=== PATIENT | female | born 2000 ===

== ENCOUNTER 2021-11-22 20:06 | Inpatient (IN) | payer OTHER ==
[2021-11-22] MEDS ORDERED: BUTORPHANOL 1 MG/ML INJ IV PRN (20:54)
[2021-11-22] MEDS ORDERED: METHYLERGONOVINE 0.2MG/ML AMP IM PRN (20:54)
[2021-11-22] MEDS ORDERED: PROMETHAZINE INJ 25 MG/ML AMP IV PRN (20:54)
[2021-11-22] MEDS ORDERED: Ringers Lactate 1,000 ML IV PRN (20:54)
[2021-11-22] MEDS ORDERED: Ringers Lactate 1,000 ML IV SCH (21:00)
[2021-11-22] MEDS ORDERED: PENICILLIN 5 MU in NA CHLORIDE 0.9% 100 ML IV ONE (21:00)
[2021-11-22] MEDS ORDERED: PENICILLIN G POT 5 MU/VIAL IV ONE (21:16)
[2021-11-22] MEDS ORDERED: NA CHLORIDE 0.9% 50 ML ONE (21:17)
--- OUTSIDE RECORDS SUMMARY | 2021-11-22 21:20 | XMS REPORT | Continuity of Care Document ---
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 [facility]it y of [facility] .5 mL 00:00:00 [facility] 6+ MO [facility] Influenza Virus 2020-09-02 Completed Universit y of [facility] .5 mL 00:00:00 [facility] 6[facility] MO [facility] Influenza Virus 2020-09-02 Completed [facility]it y of [facility] .5 mL 00:00:00 [facility] 6+ MO [facility] Influenza Virus 2020-09-02 Completed [facility]it y [facility] .5 mL 00:00:00 [facility] Influenza Virus 2020-09-02 Completed [facility]it y of [facility] .5 mL 00:00:00 [facility] 6[facility] Influenza Virus 2020-09-02 Completed [facility]it y of [facility] .5 mL 00:00:00 [facility] 6+ MO [facility] Influenza Virus 2020-09-02 Completed [facility]it y of [facility] .5 mL 00:00:00 [facility] 6+ MO [facility] Influenza Virus 2020-09-02 Completed Universit y of [facility] .5 mL 00:00:00 [facility] 6[facility] MO [facility] Influenza Virus 2020-09-02 Completed [facility]it y of [facility] .5 mL 00:00:00 [facility] 6[facility] MO [facility] Tdap 2019-09-10 Completed [facility] 00:00:00 [facility] Influenza Virus 2019-09-10 Completed [facility]it y of [facility] .5 mL 00:00:00 [facility] 6+ MO [facility] Tdap 2019-09-10 Completed [facility] 00:00:00 [facility] Influenza Virus 2019-09-10 Completed [facility]it y of [facility] .5 mL 00:00:00 [facility] 6+ MO [facility] Tdap 2019-09-10 Completed [facility] 00:00:00 [facility] Influenza Virus 2019-09-10 Completed Universit y of [facility] .5 mL 00:00:00 [facility] 6+ MO [facility] Tdap 2019-09-10 Completed [facility] 00:00:00 [facility] Influenza Virus 2019-09-10 Completed [facility]it y of [facility] .5 mL 00:00:00 [facility] 6[facility] MO [facility] TDAP 2019-09-10 Completed [facility] 00:00:00 [facility] Influenza Virus 2019-09-10 Completed [facility]it y of [facility] .5 mL 00:00:00 [facility] 6[facility] MO [facility] TDAP 2019-09-10 Completed [facility] 00:00:00 [facility] Influenza Virus 2019-09-10 Completed Universit y of [facility] .5 mL 00:00:00 [facility] 6[facility] MO [facility] TDAP 2019-09-10 Completed [facility] 00:00:00 [facility] Influenza Virus 2019-09-10 Completed Universit y of [facility] .5 mL 00:00:00 [facility] 6[facility] MO [facility] TDAP 2019-09-10 Completed [facility] 00:00:00 [facility] Influenza Virus 2019-09-10 Completed [facility]it y of [facility] .5 mL 00:00:00 [facility] 6+ MO [facility] TDAP 2019-09-10 Completed [facility] 00:00:00 [facility] Influenza Virus 2019-09-10 Completed [facility]it y of [facility] .5 mL 00:00:00 [facility] 6+ MO [facility] TDAP 2019-09-10 Completed [facility] 00:00:00 [facility] Influenza Virus 2019-09-10 Completed [facility]it y of [facility] .5 mL 00:00:00 [facility] 6+ MO [facility] TDAP 2019-09-10 Completed [facility] 00:00:00 [facility] Influenza Virus 2019-09-10 Completed Universit y of [facility] .5 mL 00:00:00 [facility] 6+ MO Branch TDAP 2019-09-10 Completed [facility] 00:00:00 [facility] Influenza Virus 2019-09-10 Completed Universit y of [facility] .5 mL 00:00:00 [facility] 6+ MO Branch TDAP 2019-09-10 Completed [facility] 00:00:00 [facility] Influenza Virus 2019-09-10 Completed Universit y of [facility] .5 mL 00:00:00 [facility] 6+ MO Branch TDAP 2019-09-10 Completed [facility] 00:00:00 [facility] Influenza Virus 2019-09-10 Completed Universit y of [facility] .5 mL 00:00:00 [facility] 6+ MO Branch TDAP 2019-09-10 Completed [facility] 00:00:00 [facility] Influenza Virus 2019-09-10 Completed [facility]it y of [facility] .5 mL 00:00:00 [facility] 6[facility] MO [facility] TDAP 2019-09-10 Completed [facility] 00:00:00 [facility] Influenza Virus 2019-09-10 Completed [facility]it y of [facility] .5 mL 00:00:00 [facility] 6[facility] MO [facility] TDAP 2019-09-10 Completed [facility] 00:00:00 [facility] Influenza Virus 2019-09-10 Completed [facility]it y of [facility] .5 mL 00:00:00 [facility] 6[facility] MO [facility] TDAP 2019-09-10 Completed [facility] 00:00:00 [facility] Influenza Virus 2019-09-10 Completed [facility]it y of [facility] .5 mL 00:00:00 [facility] 6[facility] MO [facility] TDAP 2019-09-10 Completed [facility] 00:00:00 [facility] Influenza Virus 2019-09-10 Completed Universit y of [facility] .5 mL 00:00:00 [facility] 6[facility] MO [facility] TDAP 2019-09-10 Completed [facility] 00:00:00 [facility] Influenza Virus 2019-09-10 Completed [facility]it y of [facility] .5 mL 00:00:00 [facility] 6[facility] MO [facility] TDAP 2019-09-10 Completed [facility] 00:00:00 [facility] Influenza Virus 2019-09-10 Completed [facility]it y of [facility] .5 mL 00:00:00 [facility] 6[facility] MO [facility] TDAP 2019-09-10 Completed [facility] 00:00:00 [facility] Influenza Virus 2019-09-10 Completed [facility]it y of [facility] .5 mL 00:00:00 [facility] 6[facility] MO [facility] TDAP 2019-09-10 Completed [facility] 00:00:00 [facility] Influenza Virus 2019-09-10 Completed [facility]it y of [facility] .5 mL 00:00:00 [facility] 6[facility] MO [facility] TDAP 2019-09-10 Completed [facility] 00:00:00 [facility] Influenza Virus 2019-09-10 Completed [facility]it y of [facility] .5 mL 00:00:00 [facility] 6[facility] MO [facility] TDAP 2019-09-10 Completed [facility] 00:00:00 [facility] Influenza Virus 2019-09-10 Completed [facility]it y of [facility] .5 mL 00:00:00 [facility] 6[facility] MO [facility] TDAP 2019-09-10 Completed [facility] 00:00:00 [facility] Influenza Virus 2019-09-10 Completed [facility]it y of [facility] .5 mL 00:00:00 [facility] 6[facility] MO [facility] TDAP 2019-09-10 Completed [facility] 00:00:00 [facility] Influenza Virus 2019-09-10 Completed [facility]it y of [facility] .5 mL 00:00:00 [facility] 6[facility] MO [facility] TDAP 2019-09-10 Completed [facility] 00:00:00 [facility] Influenza Virus 2019-09-10 Completed [facility]it y of [facility] .5 mL 00:00:00 [facility] 6[facility] MO [facility] TDAP 2019-09-10 Completed [facility] 00:00:00 [facility] Influenza Virus 2019-09-10 Completed [facility]it y of [facility] .5 mL 00:00:00 [facility] 6[facility] TDAP 2019-09-10 Completed [facility] 00:00:00 [facility] Influenza Virus 2019-09-10 Completed [facility]it y of [facility] .5 mL 00:00:00 [facility] 6[facility] Tdap 2019-09-10 Completed [facility] 00:00:00 [facility] Influenza Virus 2019-09-10 Completed Universit y of [facility] .5 mL 00:00:00 [facility] 6[facility] MO [facility] Tdap 2019-09-10 Completed [facility] 00:00:00 [facility] Influenza Virus 2019-09-10 Completed Universit y of [facility] .5 mL 00:00:00 [facility] IM 6+ MO Branch HPV 2015-09-19 Completed [facility] 00:00:00 [facility] HPV 2015-09-19 Completed [facility] 00:00:00 [facility] HPV 2015-09-19 Completed [facility] 00:00:00 [facility] HPV 2015-09-19 Completed [facility] 00:00:00 [facility] HPV 2014-12-06 Completed [facility] 00[facility]00:00 [facility] HPV 2014-12-06 Completed [facility] 00:00:00 [facility] HPV 2014-12-06 Completed [facility] 00:00:00 [facility] HPV 2014-12-06 Completed [facility] 00:00:00 [facility] HPV 2012-07-21 Completed [facility] 00:00:00 [facility] HPV 2012-07-21 Completed [facility] 00:00:00 [facility] HPV 2012-07-21 Completed [facility] 00:00:00 [facility] HPV 2012-07-21 Completed [facility] 00:00:00 [facility] Vital Signs Vital Name Observation Time Observation Value Comments Source Systolic blood 2021-01-09 21:19:00 113 mm[Hg] Univer sity of pressure [facility] Diastolic blood 2021-01-09 21:19:00 71 mm[Hg] Unive rsity of pressure [facility] Heart rate 2021-01-09 21:19:00 65 /min Universi ty of [facility] Body temperature 2021-01-09 21:19:00 36.33 Pita Univ ersity of [facility] Respiratory rate 2021-01-09 21:19:00 16 /min Univ ersity of [facility] Body height 2021-01-09 21:19:00 167.6 cm Universi ty [facility] Body weight 2021-01-09 21:19:00 83.604 kg [facility] BMI 2021-01-09 21:19:00 29.75 kg/m2 Universi ty of [facility] Systolic blood 2020-12-17 17:52:00 118 mm[Hg] Univer sity of pressure [facility] Diastolic blood 2020-12-17 17:52:00 72 mm[Hg] Unive rsity of pressure [facility] Heart rate 2020-12-17 17:52:00 64 /min Universi ty of [facility] Body temperature 2020-12-17 17:52:00 36.22 Pita Univ ersity of [facility] Respiratory rate 2020-12-17 17:52:00 20 /[facility] Oxygen saturation in 2020-12-17 17:52:00 99 /min University of Arterial blood by [facility] Pulse oximetry Branch Body weight 2020-12-16 16:25:00 95.255 kg Universi ty [facility] BMI 2020-12-16 16:25:00 33.89 kg/m2 [facility] Systolic blood 2020-12-10 18:54:00 125 mm[Hg] Univer sity of pressure [facility] Diastolic blood 2020-12-10 18:54:00 75 mm[Hg] Unive rsity of [facility] Heart rate 2020-12-10 18:54:00 78 /min Universi ty of [facility] Body temperature 2020-12-10 18:54:00 36.78 Pita Univ ersity of [facility] Respiratory rate 2020-12-10 18:54:00 16 /min Univ ersity of [facility] Body height 2020-12-10 18:54:00 167.6 cm Universi ty [facility] Body weight 2020-12-10 18:54:00 95.346 kg [facility]i ty [facility] BMI 2020-12-10 18:54:00 33.93 kg/m2 Universi ty of [facility] Systolic blood 2020-12-03 17:31:00 131 mm[Hg] Univer sity of pressure [facility] Diastolic blood 2020-12-03 17:31:00 82 mm[Hg] Unive rsity of pressure [facility] Heart rate 2020-12-03 17:31:00 101 /min [facility] Body temperature 2020-12-03 17:31:00 36.44 Pita Univ ersity of [facility] Respiratory rate 2020-12-03 17:31:00 16 /min Univ ersity of [facility] Body height 2020-12-03 17:31:00 167.6 cm [facility] Body weight 2020-12-03 17:31:00 94.121 kg [facility] BMI 2020-12-03 17:31:00 33.49 kg/m2 [facility] Systolic blood 2020-11-25 21:22:00 128 mm[Hg] Univer sity of pressure [facility] Diastolic blood 2020-11-25 21:22:00 71 mm[Hg] Unive rsity of pressure [facility] Heart rate 2020-11-25 21:22:00 80 /min [facility] Body temperature 2020-11-25 21:22:00 36.83 Pita Univ ersity of [facility] Respiratory rate 2020-11-25 21:22:00 16 /min Univ ersity of [facility] Body height 2020-11-25 21:22:00 167.6 cm [facility] Body weight 2020-11-25 21:22:00 93.486 kg [facility] BMI 2020-11-25 21:22:00 33.27 kg/m2 [facility] Systolic blood 2020-11-13 16:27:00 129 mm[Hg] Univer sity of pressure [facility] Diastolic blood 2020-11-13 16:27:00 76 mm[Hg] Unive rsity of pressure [facility] Heart rate 2020-11-13 16:27:00 78 /min [facility] Body temperature 2020-11-13 16:27:00 36.61 Pita Univ ersity of [facility] Respiratory rate 2020-11-13 16:27:00 16 /min Univ ersity of [facility] Body height 2020-11-13 16:27:00 167.6 cm [facility] Body weight 2020-11-13 16:27:00 92.279 kg [facility] BMI 2020-11-13 16:27:00 32.84 kg/m2 [facility] Systolic blood 2020-10-28 16:52:00 124 mm[Hg] Univer sity of pressure [facility] Diastolic blood 2020-10-28 16:52:00 77 mm[Hg] Unive rsity of pressure [facility] Heart rate 2020-10-28 16:52:00 89 /min [facility] Body temperature 2020-10-28 16:52:00 36.56 Pita Univ ers[facility] of [facility] Respiratory rate 2020-10-28 16:52:00 16 /min Univ ersity of [facility] Body height 2020-10-28 16:52:00 167.6 cm [facility] Body weight 2020-10-28 16:52:00 91.797 kg [facility] BMI 2020-10-28 16:52:00 32.66 kg/m2 [facility] Systolic blood 2020-10-14 15:51:00 127 mm[Hg] Univer sity of pressure [facility] Diastolic blood 2020-10-14 15:51:00 71 mm[Hg] Unive rsity of pressure [facility] Heart rate 2020-10-14 15:51:00 88 /min [facility] Body temperature 2020-10-14 15:51:00 36.78 Pita Univ ersity of [facility] Respiratory rate 2020-10-14 15:51:00 16 /min Univ ersity of [facility] Body height 2020-10-14 15:51:00 167.6 cm [facility] Body weight 2020-10-14 15:51:00 90.379 kg [facility] BMI 2020-10-14 15:51:00 32.16 kg/m2 [facility] Systolic blood 2020-09-02 18:50:00 121 mm[Hg] Univer sity of pressure [facility] Diastolic blood 2020-09-02 18:50:00 74 mm[Hg] Unive rsity of pressure [facility] Heart rate 2020-09-02 18:50:00 82 /min [facility]i ty [facility] Body temperature 2020-09-02 18:50:00 36.39 Pita Univ ersity of [facility] Respiratory rate 2020-09-02 18:50:00 16 /min Univ ersity of [facility] Body height 2020-09-02 18:50:00 167.6 cm [facility] Body weight 2020-09-02 18:50:00 87.499 kg [facility] BMI 2020-09-02 18:50:00 31.13 kg/m2 [facility] Systolic blood 2020-08-05 19:53:00 124 mm[Hg] Univer sity of pressure [facility] Diastolic blood 2020-08-05 19:53:00 71 mm[Hg] Unive rsity of pressure [facility] Heart rate 2020-08-05 19:53:00 83 /min [facility] Body temperature 2020-08-05 19:53:00 36.72 Pita Univ ers[facility] of [facility] Respiratory rate 2020-08-05 19:53:00 16 /min Univ ersity of [facility] Body height 2020-08-05 19:53:00 167.6 cm [facility] Body weight 2020-08-05 19:53:00 85.276 kg [facility] BMI 2020-08-05 19:53:00 30.34 kg/m2 [facility] Systolic blood 2020-07-08 15:38:00 120 mm[Hg] Univer sity of pressure [facility] Diastolic blood 2020-07-08 15:38:00 74 mm[Hg] Unive rsity of pressure [facility] Heart rate 2020-07-08 15:38:00 79 /min [facility] Body temperature 2020-07-08 15:38:00 36.22 Pita Univ ers[facility] of [facility] Respiratory rate 2020-07-08 15:38:00 16 /min Univ ersity of [facility] Body height 2020-07-08 15:38:00 167.6 cm [facility] Body weight 2020-07-08 15:38:00 82.645 kg [facility] BMI 2020-07-08 15:38:00 29.41 kg/m2 [facility] BMI 2020-01-23 15:47:00 31.03 kg/m2 [facility] Systolic blood 2020-01-23 15:47:00 121 mm[Hg] Univer sity of pressure [facility] Diastolic blood 2020-01-23 15:47:00 74 mm[Hg] Unive rsity of pressure [facility] Heart rate 2020-01-23 15:47:00 64 /min Universi ty [facility] Body temperature 2020-01-23 15:47:00 36.11 Pita Univ ersity of [facility] Respiratory rate 2020-01-23 15:47:00 16 /min Univ ersity of [facility] Body height 2020-01-23 15:47:00 167.6 cm [facility] ty [facility] Body weight 2020-01-23 15:47:00 87.204 kg [facility] ty [facility] Systolic blood 2019-07-31 13:00:00 121 mm[Hg] Univer sity of pressure [facility] Diastolic blood 2019-07-31 13:00:00 78 mm[Hg] Unive rsity of pressure [facility] Heart rate 2019-07-31 13:00:00 79 /min Universi ty of [facility] Body temperature 2019-07-31 13:00:00 36.61 Pita Univ ersity of [facility] Respiratory rate 2019-07-31 13:00:00 16 /min Univ ersity of [facility] Body height 2019-07-31 13:00:00 167.6 cm [facility] ty [facility] Body weight 2019-07-31 13:00:00 84.879 kg [facility] BMI 2019-07-31 13:00:00 30.20 kg/m2 [facility] Systolic blood 2019-07-02 13:24:00 121 mm[Hg] Univer sity of pressure [facility] Diastolic blood 2019-07-02 13:24:00 72 mm[Hg] Unive rsity of pressure [facility] Heart rate 2019-07-02 13:24:00 82 /min [facility]i ty [facility] Body temperature 2019-07-02 13:24:00 36.5 Pita Univ ersity of [facility] Respiratory rate 2019-07-02 13:24:00 18 /min Univ ersity of [facility] Body height 2019-07-02 13:24:00 167.6 cm [facility] Body weight 2019-07-02 13:24:00 79.55 kg [facility] BMI 2019-07-02 13:24:00 28.31 kg/m2 [facility] Procedures Procedure Date / Time Performed Performing Clinician Sourc e CBC WITH DIFF 2020-12-16 17:01:00 [facility] VZV ANTIBODY SCREEN 2020-12-16 17:01:00 Lina Zarate [facility] HEPATITIS B SURFACE 2020-12-16 17:01:00 Carol Ann Jiménez [facility] ANTIGEN [facility] HIV 1/2 AG-AB WITH 2020-12-16 17:01:00 Carol Ann Jiménez [facility] REFLEX [facility] GALV ONLY - SYPHILIS 2020-12-16 17:01:00 Carol Ann Jiménez [facility] IGG/IGM [facility] HB ABO GROUPING 2020-12-16 16:58:00 [facility] RHO (D) IMMUNE 2020-12-16 16:58:00 Carol Ann Jiménez [facility] GLOBULIN [facility] COVID-19 (ID NOW RAPID 2020-12-16 15:03:00 Eliot Larsen [facility] TESTING) [facility] POCT URINALYSIS 2020-12-10 00:00:00 Amaya Martinez [facility] POCT URINALYSIS 2020-12-03 17:32:00 Amaya Martinez [facility] POCT URINALYSIS 2020-12-03 00:00:00 Amaya Martinez [facility] POCT URINALYSIS 2020-11-25 00:00:00 Amaya Martinez [facility] POCT URINALYSIS 2020-11-13 00:00:00 Amaya Martinez [facility] POCT URINALYSIS 2020-10-28 16:53:00 Amaya Martinez [facility] HIV 1/2 AG-AB WITH 2020-10-14 16:49:00 Amaya Martinez [facility] REFLEX [facility] GALV ONLY - SYPHILIS 2020-10-14 16:49:00 [facility] TDAP VACCINE, >11 YRS, 2020-10-14 15:58:25 Lela Calderon [facility] FLU VACC ([id number]), 2020-09-02 18:59:26 Amaya Martinez [facility] 6+ MONTHS, IM, QUAD Medical Bran ch POCT URINALYSIS 2020-09-02 00:00:00 Amaya Martinez [facility] POCT URINALYSIS 2020-08-05 00:00:00 Amaya Martinez [facility] ASSIGNMENT OF BENEFITS 2020-07-08 14:59:57 Doctor Unassigned, No [facility] POCT TEST 2020-07-08 00:00:00 [facility] POCT URINALYSIS W/O 2020-07-08 00:00:00 [facility] POCT TEST 2020-01-23 15:48:00 Lela Calderon [facility] POCT URINALYSIS W/O 2019-07-31 13:03:00 Delilah Agarwal [facility] POCT URINALYSIS W/O 2019-07-02 13:26:00 Delilah Agarwal [facility] Encounters Start End Encounter Admission Attending Care Care Encounter Source Date/Time Date/Time Type Type Clinicians Facility Department ID 2021-09-[address] [facility] [id number] Univers 17:55:33 [facility] 2021-10-01 2021-10-[address] [facility] [id number] Univers 10:30:00 10:30:00 [id number] [facility] 2021-10-01 2021-10-01 [id number] Univers 10:30:00 10:30:00 JANNIE ity [facility] 2021-02-17 2021-02-17 Patient [facility] [id number] Univers 00:00:00 00:00:00 Outreach Fabien PRIMARY [id number] i ty of [facility] [id number] Talonligia otoole LAURA [id number] [address] 2021-02-04 2021-02-04 [facility] [id number] Univers 14:00:00 14:00:00 [facility] [id number] it o [facility] 2021-02-04 2021-02-[address] [facility] [id number] Univers 14:00:00 14:00:00 KATARZYNAMIKE jain o [facility] 2021-01-30 2021-01-[address] [facility] [id number] Univers 10:30:00 10:30:00 KATARZYNAMIKE [id number] it o [facility] 2021-01-30 2021-01-30 [id number] Univers 10:30:00 10:30:00 [facility] 2021-01-22 2021-01-22 Telephone [facility] [id number] Univers 00:00:00 00:00:00 Lela C ACCOUNTS PAYABLE ACCOUNTANT 350.1.13.10 ity of REGIONAL 4.2.7.2.686 Talon as MATERNAL [id number] Med ical & CHILD [address] [place] [address] 2021-01-09 2021-01-[address] 1.2.913.752 [id number] Univers 15:14:31 15:31:46 Lela C ACCOUNTS PAYABLE ACCOUNTANT 350.1.13.10 ity of Visit REGIONAL 4.2.7.2.686 Talon as MATERNAL [id number] Med ical & CHILD [address] [place] [address] 2021-01-09 2021-01-[address] [facility] [id number] Univers 14:00:00 14:00:00 LELA [id number] ity o f [facility] 2021-01-09 2021-01-09 Outpatient R YUMIKO, [facility] [id number] Univers 14:00:00 14:00:00 LELA ity o f [facility] 2020-12-16 2020-12-17 [facility] ARELI Larsen 1.2.840.114 [id number] Univers 08:47:00 15:27:00 Encounter Eliot LOVE 350.1.13.10 ity of [facility] 4.2.7.2.686 Talon as [id number] [address] 2020-12-10 2020-12-10 [facility] 1.2.840.114 [id number] Univers 12:45:11 13:07:37 Roshunda R ACCOUNTS PAYABLE ACCOUNTANT 350.1.13.10 ity of Visit REGIONAL 4.2.7.2.686 Talon as MATERNAL [phone] [facility] ical & CHILD [address] [place] [address] 2020-12-10 2020-12-[address] [facility] [id number] -20 Univers 12:45:00 12:45:00 ROSHUNDA [id number] ity o [facility] 2020-12-10 2020-12-10 [facility] [id number] Univers 12:45:00 12:45:00 ROSHUNDA ity o [facility] 2020-12-03 2020-12-03 [facility] 1.2.840.114 [id number] Univers 11:10:08 11:30:55 Roshunda R ACCOUNTS PAYABLE ACCOUNTANT 350.1.13.10 ity of Visit REGIONAL 4.2.7.2.686 Talon as MATERNAL [phone] [facility] ical & CHILD [address] [place] [address] 2020-12-03 2020-12-03 [facility] [id number] -[id number] Univers 11:00:00 11:00:00 ROSHUNDA [id number] ity o [facility] 2020-12-03 2020-12-[address] [facility] [id number] Univers 11:00:00 11:00:00 ROSHUNDA ityohan o f [facility] 2020-11-25 2020-11-25 Routine Michelle [facility] 1.2.840.114 [id number] Univers 14:54:38 15:39:14 Roshunda R ACCOUNTS PAYABLE ACCOUNTANT 350.1.13.10 ity of Visit REGIONAL 4.2.7.2.686 Talon as MATERNAL [id number] Med ical & CHILD [address] [place] [address] 2020-11-25 2020-11-[address] [facility] [id number] -[id number] Univers 15:30:00 15:30:00 ROSHUNDA [id number] ityohan o tanisha [facility] 2020-11-25 2020-11-[address] [facility] [id number] Univers 15:30:00 15:30:00 ROSHUNDA ityohan o tanisha [facility] 2020-11-19 2020-11-[address] [facility] [id number] -[id number] Univers 09:15:00 09:15:00 ROSHUNDA [id number] ityohan o tanisha [facility] 2020-11-19 2020-11-[address] [facility] [id number] Univers 09:15:00 09:15:00 ROSHUNDA ityohan o tanisha [facility] 2020-11-13 2020-11-[address] [facility] [id number] -[id number] Univers 14:45:00 14:45:00 ROSHUNDA [id number] ityohan o [facility] 2020-11-13 2020-11-[address] [facility] [id number] Univers 14:45:00 14:45:00 [address]HUNDA yohan o [facility] 2020-11-13 2020-11-13 [facility] 1.2.840.114 [id number] Univers 10:20:55 10:53:06 Roshunda R ACCOUNTS PAYABLE ACCOUNTANT 350.1.13.10 ity of Visit REGIONAL 4.2.7.2.686 Talon as MATERNAL [phone] [facility] ical & CHILD [address] [place] [address] 2020-11-12 2020-11-12 Outpatient R MICHELLE, [facility] [id number] -[id number] Univers 10:30:00 10:30:00 AMAYA [id number] ity o f [facility] 2020-11-12 2020-11-12 Outpatient R MICHELLE, [facility] [id number] Univers 10:30:00 10:30:00 CHANDRAKANTA ity o [facility] 2020-10-28 2020-10-28 Routine Akinsipe, [facility] 1.2.967.916 [id number] Univers 10:46:20 11:09:32 Lela C ACCOUNTS PAYABLE ACCOUNTANT 350.1.13.10 ity of Visit REGIONAL 4.2.7.2.686 Talon as MATERNAL [id number] [facility] & [address] 2020-10-28 2020-10-28 Outpatient R AKINSIPE, [facility] [id number] Univers 10:45:00 10:45:00 LELA ity o [facility] 2020-10-28 2020-10-28 Outpatient R AKINSIPE, [facility] [id number] Univers 10:45:00 10:45:00 LELA sierray o [facility] 2020-10-14 2020-10-14 Routine Akinsipe, [facility] 1.2.172.764 [id number] Univers 09:40:51 10:25:35 Lela C ACCOUNTS PAYABLE ACCOUNTANT 350.1.13.10 ity of Visit REGIONAL 4.2.7.2.686 Talon as MATERNAL [id number] [facility] & [address] 2020-10-14 2020-10-14 Outpatient R AKINSIPE, [facility] [id number] Univers 09:45:00 09:45:00 LELA [id number] ity o [facility] 2020-10-14 2020-10-14 Outpatient R AKINSIPE, [facility] [id number] Univers 09:45:00 09:45:00 LELA ity o f [facility] 2020-10-02 2020-10-02 Outpatient R MICHELLE, [facility] [id number] -[id number] Univers 14:15:00 14:15:00 AMAYA ity o f [facility] 2020-10-02 2020-10-[address] [facility] [id number] Univers 14:15:00 14:15:00 ROSCLARKENDA ity o f [facility] 2020-09-23 2020-09-[address] [facility] [id number] -20 Univers 13:45:00 13:45:00 KATARZYNACLARKENDLigia [id number] ity o f [facility] 2020-09-23 2020-09-[address] [facility] [id number] Univers 13:45:00 13:45:00 JERELNDA ity o f [facility] 2020-09-04 2020-09-[address] [facility] [id number] -[id number] Univers 13:30:00 13:30:00 ity [facility] 2020-09-04 2020-09-[address] [facility] [id number] Univers 13:30:00 13:30:00 ity [facility] 2020-09-02 2020-09-02 [facility] 1.2.840.114 [id number] Univers 13:30:20 14:11:20 Roshunda R ACCOUNTS PAYABLE ACCOUNTANT 350.1.13.10 ity of Visit REGIONAL 4.2.7.2.686 Talon as MATERNAL [id number] [facility] ical & CHILD [address] [place] [address] 2020-09-02 2020-09-[address] [facility] [id number] -[id number] Univers 13:45:00 13:45:00 KATARZYNACLARKENDA ity o f [facility] 2020-09-02 2020-09-[address] [facility] [id number] Univers 13:45:00 13:45:00 ROSHUNDA ity o f [facility] 2020-08-05 2020-08-05 Routine Michelle [facility] 1.2.840.114 [id number] Univers 14:46:12 15:17:48 Roshunda R ACCOUNTS PAYABLE ACCOUNTANT 350.1.13.10 ity of Visit REGIONAL 4.2.7.2.686 Talon as MATERNAL [id number] [facility] ical & CHILD [address] [place] [address] 2020-08-05 2020-08-[address] [facility] [id number] -[id number] Univers 15:00:00 15:00:00 KATARZYNACLARKEMIKE ity o f [facility] 2020-08-05 2020-08-[address] [facility] [id number] Univers 15:00:00 15:00:00 JERELNDA ity o f [facility] 2020-07-17 2020-07-17 Abstract Michelle [facility] 1.2.840.114 [id number] Univers 00:00:00 00:00:00 Jerelvamshia R ACCOUNTS PAYABLE ACCOUNTANT 350.1.13.10 ity of [facility] 4.2.7.2.686 Talon as MATERNAL [id number] [facility] [address] [place] [address] 2020-07-17 2020-07-17 Abstract Michelle [facility] 1.2.840.114 [id number] Univers 00:00:00 00:00:00 Jerelnda R ACCOUNTS PAYABLE ACCOUNTANT 350.1.13.10 ity of [facility] 4.2.7.2.686 Talon as MATERNAL [id number] [facility] & [address] 2020-07-16 2020-07-16 Auto Dismantler 2, [facility] Us Room UNIVERSIT 1 .2.840.114 [id number] Univers 14:03:49 15:03:49 [facility] 350.1.13.10 ity of [facility] 4.2.7.2.[place] [id number] [address] 2020-07-16 2020-07-[address] [facility] [id number] -[id number] Univers 14:00:00 14:00:00 [id number] ity of [facility] 2020-07-16 2020-07-[address] [facility] [id number] Univers 14:00:00 14:00:00 ity of [facility] 2020-07-14 2020-07-14 Telephone [facility] 1.2.840.114 [id number] Univers 00:00:00 00:00:00 Lela Wilson ACCOUNTS PAYABLE ACCOUNTANT 350.1.13.10 ity of REGIONAL 4.2.7.2.686 Talon as MATERNAL [id number] [facility] & [address] 2020-07-08 2020-07-08 [facility] 1.2.840.114 [id number] Univers 10:27:59 11:18:40 Amaya Weaver ACCOUNTS PAYABLE ACCOUNTANT 350.1.13.10 ity of Visit REGIONAL 4.2.7.2.686 Talon as MATERNAL [id number] [address] 2020-07-08 2020-07-08 [facility] [id number] -[id number] Univers 09:45:00 09:45:00 AMAYA [id number] cristobal o [facility] 2020-07-08 2020-07-08 [facility] [id number] Univers 09:15:00 09:15:[address]MAYA [address] o [facility] 2020-07-08 2020-07-08 Orders Doctor ARELI 1.2.840.114 [id number] Univers 00:00:00 00:00:00 Only Unassigned, IVAN 350.1.13.10 ity of [place] [facility] 4.2.7.2.686 Talon as [id number] [address] 2020-07-03 2020-07-03 Letter [facility] 1.2.170.593 [id number] Univers 00:00:00 00:00:00 (Out) Lela Wilson ACCOUNTS PAYABLE ACCOUNTANT 350.1.13.10 ity of [facility] 4.2.7.2.686 Talon as MATERNAL [id number] [address] 2020-06-30 2020-06-[address] [facility] [id number] Univers 09:15:00 09:15:00 LELA [id number] cristobal o [facility] 2020-06-30 2020-06-[address] [facility] [id number] Univers 08:45:00 08:45:00 LELA jain o [facility] 2020-06-17 2020-06-[address] [facility] [id number] Univers 13:15:00 13:15:00 AMAYA ity o f [facility] 2020-06-17 2020-06-[address] [facility] [id number] -[id number] Univers 12:45:00 12:45:00 [id number] ity [facility] 2020-06-12 2020-06-12 [facility] [id number] Univers 14:00:00 14:00:00 DELILAH [id number] ity [facility] 2020-06-12 2020-06-12 Out[facility] [id number] Univers 14:00:00 14:00:00 [facility] 2020-01-[address] [facility] [id number] -[id number] Univers 10:00:00 10:00:00 [id number] ity [facility] 2020-01-30 2020-01-[address] [facility] [id number] Univers 10:00:00 10:00:00 ity [facility] 2020-01-23 2020-01-23 Office [facility] 1.2.961.813 [id number] Univers 09:35:33 10:27:42 Visit Lela Wilson ACCOUNTS PAYABLE ACCOUNTANT 350.1.13.10 ity of REGIONAL 4.2.7.2.686 Talon as MATERNAL [id number] Med ical & CHILD [address] [place] [address] 2020-01-23 2020-01-23 [facility] [id number] Univers 09:30:00 09:30:00 LELA sierray o f [facility] 2019-11-24 2019-11-24 1.2.840.1 1.2.840.114 [id number] Univers 00:00:00 00:00:00 Encounter [id number] 350.1.13.10 ity of 3[place]104.2.7 [place]2.696 [id number] [facility] 2019-07-31 2019-07-31 [facility] 1.2.558.504 [id number] Univers 07:50:39 08:23:47 Delilah Swain ACCOUNTS PAYABLE ACCOUNTANT 350.1.13.10 i ty of Visit REGIONAL 4.2.7.2.686 Talon as MATERNAL [id number] [facility] & CHILD 107 [facility] 2019-07-10 2019-07-10 Auto Dismantler Divya, Ezio [facility] 1.2 .840.114 [id number] Univers 09:06:07 10:07:03 Visit Mary Andersen ACCOUNTS PAYABLE ACCOUNTANT 350.1.13.10 ity of [facility] 4.2.7.2.686 Talon as MATERNAL [id number] [facility] & [facility] 369 [facility] 2019-07-02 2019-07-02 Routine Any, [facility] 1.2.398.952 [id number] Univers 08:11:00 08:45:59 Delilah Swain ACCOUNTS PAYABLE ACCOUNTANT 350.1.13.10 i ty of Visit [facility] 4.2.7.2.686 Talon as MATERNAL [id number] [facility] & [address] Results Test Description Test Time Test Comments Results Result Comments Source [facility] - SYPHILIS IGG/IGM 2020-12-17 15:51:00 Test Item Value Reference Range Interpretation Comme nts Syphilis IgG/IgM (test code = Non-reactive Non-reactive 45024-0) HAYLEE (test code = HAYLEE) Non-reactive - No serologic evidence of T. pallidum infection. Cannot exclude incubating or early syphilis. Submit a second specimen in 2-4 weeks if syphilis is clinically suspected. Equivocal - Further testing to follow. Reactive - Further testing to follow. Lab Interpretation (test code = Normal 75662-6) [facility] [id number] 15:51:00 Test Item Value Reference Range Interpretation Comments VZV IgG antibody Equivocal Negative (test code = 22519-2) HAYLEE (test code = HAYLEE) Positive - Indicates the patient was exposed to VZV through infection or vaccination.Negative - Indicates the patient could be susceptible to VZV infection.Equivocal - A second specimen should be sent for testing. [facility]) IMMUNE [id number] 23:43:17 Test Item Value Reference Range Interpretation Comments RHIG CANDIDATE? No- see comment Patient i s not a (test code = candidate for R hIg- 5055) Patient is Rh Positive.Perfor med at [facility] Laboratory Services - [facility] Blood [address] [place], [place] [id number] Free: [phone] A No. [id number] [facility]HIV [facility]/2 AG-AB WITH [id number] 18:21:00 Test Item Value Reference Range Interpretation Comments HIV Negative Negative Semi-quantitative (test code = 86858-1) HAYLEE (test code = Non-reactive for HIV-1 HAYLEE) antigen and HIV-1/HIV-2 antibodies. ?No laboratory evidence of HIV infection. ?Repeat in 2-4 weeks if acute HIV infection is suspected. [facility] Hospital[facility]atitis B Surface [id number] 18:12:00 Test Item Value Reference Range Interpretation Comments HBsAg Semi-Quantitative (test code = Negative Negative 5195-3) [facility] HospitalType and Screen - ONCE [id number] 17:56:08 Test Item Value Reference Range Interpretation Comments ABO & RH (test code O POSITIVE Performe d at [facility] = 20) Laboratory Serv [facility] [address]Kygk Free: [phone] A No. [id number] IAT (test code = Negative Performed a t [facility] 1185) Laboratory Serv [facility] [address]Rziu Free: [phone] A No. [id number] [facility] HospitalCBC with [id number] 17:14:00 Test Item Value Reference Range Interpretation Comments WBC (test code = See_Comment [Automated 6790-2) message] The sy stem which generated this result transmitted reference range : 4.30 - 11.10 10*3/?L. The reference range was not used to interpret this result as normal/abnormal . RBC (test code = See_Comment [Automated 798-8) message] The sy stem which generated this result transmitted reference range : 3.93 - 5.25 10*6/?L. The reference range was not used to interpret this result as normal/abnormal . HGB (test code = 12.0 g/dL 11.6-15 718-7) HCT (test code = 37.5 % 35.7-45.2 4544-3) MCV (test code = 90.4 fL 80.6-95.5 787-2) MCH (test code = 28.9 pg 25.9-32.8 785-6) MCHC (test code = 32.0 g/dL 31.6-35.1 786-4) RDW-SD (test code = 42.6 fL 39-49.9 78035-2) RDW-CV (test code = 13.1 % 12-15.5 788-0) PLT (test code = See_Comment [Automated 777-3) message] The sy stem which generated this result transmitted reference range : 166 - 358 10*3/ ?L. The reference r seble was not used to interpret this result as normal/abnormal . MPV (test code = 12.7 fL 9.5-12.9 00479-8) NRBC/100 WBC (test See_Comment [Automat ed code = [id number]) message] The system which generated this result transmitted reference range : 0.0 - 10.0 /100 WBCs. The refer ence range was not u sed to interpret th is result as normal/abnormal . NRBC x10^3 (test code <0.01 See_Comment [Auto mated = [id number]) message] The s ystem which generated this result transmitted reference range : 10*3/?L. The reference range was not used to interpret this result as normal/abnormal . GRAN MAT (NEUT) % 68.5 % (test code = 770-8) IMM GRAN % (test code 1.00 % = 4014585455) LYMPH % (test code = 22.7 % 736-9) MONO % (test code = 6.7 % 5905-5) EOS % (test code = 0.7 % 713-8) BASO % (test code = 0.4 % 706-2) GRAN MAT x10^3(ANC) 7.32 10*3/uL 1.88-7.09 H (test code = 1981136294) IMM GRAN x10^3 (test 0.11 10*3/uL 0-0.06 H code = 7520553870) LYMPH x10^3 (test code 2.43 10*3/uL 1.32-3.29 = 731-0) MONO x10^3 (test code 0.72 10*3/uL 0.33-0.92 = 742-7) EOS x10^3 (test code = 0.07 10*3/uL 0.03-0.39 711-2) BASO x10^3 (test code 0.04 10*3/uL 0.01-0.07 = 704-7) Lab Interpretation Abnormal (test code = 92462-6) [facility] Hospital[facility]OVID[facility] (ID NOW RAPID TESTING)2020-12-16 15:43:00 Test Item Value Reference Range Interpretation Comments SARS-CoV-2 Rapid ID NOW Not Detected Not Detected (test code = 52926-6) HAYLEE (test code = HAYLEE) ID NOW COVID-19 Assay is an isothermal nucleic acid amplification test intended for the qualitative detection of nucleic acid from SARS-CoV-2 viral RNA in nasopharyngeal (MULE DEVELOPER) specimens. It is used under Emergency Use Authorization (EUA) by FDA. The limit of detection (LOD) of the assay is 125 Genome Equivalents/mL. A positive result is indicative of the presence of SARS-CoV-2 RNA. ?Clinical correlation with patient history and other diagnostic information is necessary to determine patient infection status. A negative (Not Detected) result does not preclude SARS-CoV-2 infection. In patients with clinical symptoms and other tests that are consistent with SARS-CoV-2 infection, negative results should be treated as presumptive negative and a new specimen should be tested with alternative PCR molecular test. Invalid: Please collect a new specimen for repeat patient testing if clinically indicated. Lab Interpretation Normal (test code = 43005-9) [facility] SPECIFIC [id number] 18:56:00 Test Item Value Reference Range Interpretation Comments POCT U SP GRAV (test code = 3255) . 1.005-1.025 POCT PH U (test code = 3254) . 5-8 POCT U LEUK EST (test code = 3263) . Negative - Negative POCT U NIT (test code = 3262) . Negative - Negative POCT U PROT (test code = 3259) neg Negative - Negative POCT U GLU (test code = 3256) neg Negative - Negative POCT U KETONE (test code = 3258) . Negative - Negative POCT U UROBILI (test code = 3260) . 0.2-1 POCT U BILI (test code = 3261) . Negative - Negative POCT U BLD (test code = 3257) . Negative - Negative POCT U COLOR (test code = 3266) POCT U APPEAR (test code = 3267) [facility] URINALYSIS W SPECIFIC [id number] 17:32:00 Test Item Value Reference Range Interpretation Comments POCT U SP GRAV (test code = . 1.005-1.025 3255) POCT PH U (test code = 3254) . 5-8 POCT U LEUK EST (test code = . Negative - Negative 3263) POCT U NIT (test code = 3262) . Negative - Negative POCT U PROT (test code = 3259) negativ Negative - Negative POCT U GLU (test code = 3256) negative Negative - Negative POCT U KETONE (test code = 3258) . Negative - Negative POCT U UROBILI (test code = . 0.2-1 3260) POCT U BILI (test code = 3261) . Negative - Negative POCT U BLD (test code = 3257) . Negative - Negative POCT U COLOR (test code = 3266) POCT U APPEAR (test code = 3267) [facility] URINALYSIS W SPECIFIC [id number] 17:24:00 Test Item Value Reference Range Interpretation Comments POCT U SP GRAV (test code = 3255) . 1.005-1.025 POCT PH U (test code = 3254) . 5-8 POCT U LEUK EST (test code = 3263) . Negative - Negative POCT U NIT (test code = 3262) . Negative - Negative POCT U PROT (test code = 3259) neg Negative - Negative POCT U GLU (test code = 3256) neg Negative - Negative POCT U KETONE (test code = 3258) . Negative - Negative POCT U UROBILI (test code = 3260) . 0.2-1 POCT U BILI (test code = 3261) . Negative - Negative POCT U BLD (test code = 3257) . Negative - Negative POCT U COLOR (test code = 3266) POCT U APPEAR (test code = 3267) [facility] URINALYSIS W SPECIFIC [id number] 21:23:00 Test Item Value Reference Range Interpretation Comments POCT U SP GRAV (test code = 3255) . 1.005-1.025 POCT PH U (test code = 3254) . 5-8 POCT U LEUK EST (test code = 3263) . Negative - Negative POCT U NIT (test code = 3262) . Negative - Negative POCT U PROT (test code = 3259) trace Negative - Negative POCT U GLU (test code = 3256) neg Negative - Negative POCT U KETONE (test code = 3258) . Negative - Negative POCT U UROBILI (test code = 3260) . 0.2-1 POCT U BILI (test code = 3261) . Negative - Negative POCT U BLD (test code = 3257) . Negative - Negative POCT U COLOR (test code = 3266) POCT U APPEAR (test code = 3267) [facility] URINALYSIS W SPECIFIC [id number] 16:33:00 Test Item Value Reference Range Interpretation Comments POCT U SP GRAV (test code = 3255) . 1.005-1.025 POCT PH U (test code = 3254) . 5-8 POCT U LEUK EST (test code = 3263) . Negative - Negative POCT U NIT (test code = 3262) . Negative - Negative POCT U PROT (test code = 3259) trace Negative - Negative POCT U GLU (test code = 3256) neg Negative - Negative POCT U KETONE (test code = 3258) . Negative - Negative POCT U UROBILI (test code = 3260) . 0.2-1 POCT U BILI (test code = 3261) . Negative - Negative POCT U BLD (test code = 3257) . Negative - Negative POCT U COLOR (test code = 3266) POCT U APPEAR (test code = 3267) [facility] URINALYSIS W SPECIFIC [id number] 16:33:00 Test Item Value Reference Range Interpretation Comments POCT U SP GRAV (test code = 3255) . 1.005-1.025 POCT PH U (test code = 3254) . 5-8 POCT U LEUK EST (test code = 3263) . Negative - Negative POCT U NIT (test code = 3262) . Negative - Negative POCT U PROT (test code = 3259) trace Negative - Negative POCT U GLU (test code = 3256) neg Negative - Negative POCT U KETONE (test code = 3258) . Negative - Negative POCT U UROBILI (test code = 3260) . 0.2-1 POCT U BILI (test code = 3261) . Negative - Negative POCT U BLD (test code = 3257) . Negative - Negative POCT U COLOR (test code = 3266) POCT U APPEAR (test code = 3267) [facility] URINALYSIS W SPECIFIC [id number] 16:53:00 Test Item Value Reference Range Interpretation Comments POCT U SP GRAV (test code = 3255) . 1.005-1.025 POCT PH U (test code = 3254) . 5-8 POCT U LEUK EST (test code = 3263) . Negative - Negative POCT U NIT (test code = 3262) . Negative - Negative POCT U PROT (test code = 3259) Trace Negative - Negative POCT U GLU (test code = 3256) Neg Negative - Negative POCT U KETONE (test code = 3258) . Negative - Negative POCT U UROBILI (test code = 3260) . 0.2-1 POCT U BILI (test code = 3261) . Negative - Negative POCT U BLD (test code = 3257) . Negative - Negative POCT U COLOR (test code = 3266) POCT U APPEAR (test code = 3267) [facility] ONLY - SYPHILIS [id number] 16:11:00 Test Item Value Reference Range Interpretation Comments Syphilis IgG/IgM (test Non-reactive Non-reactive code = 62635-5) HAYLEE (test code = HAYLEE) Non-reactive - No serologic evidence of T. pallidum infection. Cannot exclude incubating or early syphilis. Submit a second specimen in 2-4 weeks if syphilis is clinically suspected. Equivocal - Further testing to follow. Reactive - Further testing to follow. Lab Interpretation (test Normal code = 00439-5) [facility] 11/29 AG-AB WITH [id number] 05:28:00 Test Item Value Reference Range Interpretation Comments HIV Negative Negative Semi-quantitative (test code = 77167-4) HAYLEE (test code = Non-reactive for HIV-1 HAYLEE) antigen and HIV-1/HIV-2 antibodies. ?No laboratory evidence of HIV infection. ?Repeat in 2-4 weeks if acute HIV infection is suspected. [facility] URINALYSIS W SPECIFIC [id number] 18:52:00 Test Item Value Reference Range Interpretation Comments POCT U SP GRAV (test code = 3255) . 1.005-1.025 POCT PH U (test code = 3254) . 5-8 POCT U LEUK EST (test code = 3263) . Negative - Negative POCT U NIT (test code = 3262) . Negative - Negative POCT U PROT (test code = 3259) trace Negative - Negative POCT U GLU (test code = 3256) neg Negative - Negative POCT U KETONE (test code = 3258) . Negative - Negative POCT U UROBILI (test code = 3260) . 0.2-1 POCT U BILI (test code = 3261) . Negative - Negative POCT U BLD (test code = 3257) . Negative - Negative POCT U COLOR (test code = 3266) POCT U APPEAR (test code = 3267) [facility] URINALYSIS W SPECIFIC [id number] 19:54:00 Test Item Value Reference Range Interpretation Comments POCT U SP GRAV (test code = 3255) . 1.005-1.025 POCT PH U (test code = 3254) . 5-8 POCT U LEUK EST (test code = 3263) . Negative - Negative POCT U NIT (test code = 3262) . Negative - Negative POCT U PROT (test code = 3259) trace Negative - Negative POCT U GLU (test code = 3256) normal Negative - Negative POCT U KETONE (test code = 3258) . Negative - Negative POCT U UROBILI (test code = 3260) . 0.2-1 POCT U BILI (test code = 3261) . Negative - Negative POCT U BLD (test code = 3257) . Negative - Negative POCT U COLOR (test code = 3266) POCT U APPEAR (test code = 3267) [facility] URINALYSIS W SPECIFIC [id number] 19:54:00 Test Item Value Reference Range Interpretation Comments POCT U SP GRAV (test code = 3255) . 1.005-1.025 POCT PH U (test code = 3254) . 5-8 POCT U LEUK EST (test code = 3263) . Negative - Negative POCT U NIT (test code = 3262) . Negative - Negative POCT U PROT (test code = 3259) trace Negative - Negative POCT U GLU (test code = 3256) normal Negative - Negative POCT U KETONE (test code = 3258) . Negative - Negative POCT U UROBILI (test code = 3260) . 0.2-1 POCT U BILI (test code = 3261) . Negative - Negative POCT U BLD (test code = 3257) . Negative - Negative POCT U COLOR (test code = 3266) POCT U APPEAR (test code = 3267) [facility] URINALYSIS W SPECIFIC [id number] 19:54:00 Test Item Value Reference Range Interpretation Comments POCT U SP GRAV (test code = 3255) . 1.005-1.025 POCT PH U (test code = 3254) . 5-8 POCT U LEUK EST (test code = 3263) . Negative - Negative POCT U NIT (test code = 3262) . Negative - Negative POCT U PROT (test code = 3259) trace Negative - Negative POCT U GLU (test code = 3256) normal Negative - Negative POCT U KETONE (test code = 3258) . Negative - Negative POCT U UROBILI (test code = 3260) . 0.2-1 POCT U BILI (test code = 3261) . Negative - Negative POCT U BLD (test code = 3257) . Negative - Negative POCT U COLOR (test code = 3266) POCT U APPEAR (test code = 3267) [facility] [id number] 15:45:00 Test Item Value Reference Range Interpretation Comments POCT PREG (test code = 1605) Positive On board controls acceptable with C Yes Line (test code = 357) POCT PREG LOT # (test code = 3572) POCT PREG TEST DATE (test code = 3576) [facility] URINALYSIS W/O SPECIFIC [id number] 15:45:00 Test Item Value Reference Range Interpretation Comments POCT PH U (test code = 3254) 8 mg/dl 5-8 POCT U LEUK EST (test code = 2+ Negative - Negative 3263) POCT U NIT (test code = 3262) neg Negative - Negative POCT U PROT (test code = 3259) 2+ Negative - Negative POCT U GLU (test code = 3256) normal Negative - Negative POCT U KETONE (test code = 3258) neg Negative - Negative POCT U BLD (test code = 3257) neg Negative - Negative [facility] [id number] 15:48:00 Test Item Value Reference Range Interpretation Comments POCT PREG (test code = 1605) Negative On board controls acceptable with C Yes Line (test code = 3574) POCT PREG LOT # (test code = 3575) POCT PREG TEST DATE (test code = 3576) [facility] [id number] 15:48:00 Test Item Value Reference Range Interpretation Comments POCT PREG (test code = 1605) Negative On board controls acceptable with C Yes Line (test code = 3574) POCT PREG LOT # (test code = 3575) POCT PREG TEST DATE (test code = 3576) [facility] [id number] 15:48:00 Test Item Value Reference Range Interpretation Comments POCT PREG (test code = 1605) Negative On board controls acceptable with C Yes Line (test code = 3574) POCT PREG LOT # (test code = 3575) POCT PREG TEST DATE (test code = 3576) [facility] [id number] 15:48:00 Test Item Value Reference Range Interpretation Comments POCT PREG (test code = 1605) Negative On board controls acceptable with C Yes Line (test code = 3574) POCT PREG LOT # (test code = 3575) POCT PREG TEST DATE (test code = 3576) [facility] [id number] 15:48:00 Test Item Value Reference Range Interpretation Comments POCT PREG (test code = 1605) Negative On board controls acceptable with C Yes Line (test code = 3574) POCT PREG LOT # (test code = 3575) PO[facility] DATE (test code = 3576[facility] [id number] 13:04:00 Test Item Value Reference Range Interpretation Comments POCT PH U (test code = 3254) . 5-8 POCT U LEUK EST (test code = 3263) . Negative - Negative POCT U NIT (test code = 3262) . Negative - Negative POCT U PROT (test code = 3259) neg Negative - Negative POCT U GLU (test code = 3256) neg Negative - Negative POCT U KETONE (test code = 3258) . Negative - Negative POCT U BLD (test code = 3257) . Negative - Negative [facility] URINALYSIS W/O SPECIFIC [id number] 13:26:00 Test Item Value Reference Range Interpretation Comments POCT PH U (test code = 3254) . 5-8 POCT U LEUK EST (test code = 3263) . Negative - Negative POCT U NIT (test code = 3262) . Negative - Negative POCT U PROT (test code = 3259) neg Negative - Negative POCT U GLU (test code = 3256) neg Negative - Negative POCT U KETONE (test code = 3258) . Negative - Negative POCT U BLD (test code = 3257) . Negative - Negative [facility]
[2021-11-22] MEDS ORDERED: OXYTOCIN/LR 20 UNIT/1,000 ML BAG IV ONE (21:27)
[2021-11-22] MEDS ORDERED: LIDOCAINE 1% MPF 30 ML VIAL ONE (21:33)
[2021-11-22] MEDS ORDERED: ACETAMINOPHEN 500 MG TAB PO PRN (21:43)
[2021-11-22] MEDS ORDERED: IBUPROFEN 600 MG TAB PO PRN (21:43)
[2021-11-22] MEDS ORDERED: DOCUSATE NA/SENNA CONC 1 TAB PO PRN (21:43)
[2021-11-22] MEDS ORDERED: DIPHENHYDRAMINE 25 MG TAB/CAP PO PRN (21:43)
[2021-11-22] MEDS ORDERED: Oxycodone HCl/Acetaminophen 1 TAB TAB PO PRN ×2 (21:43)
[2021-11-22] MEDS ORDERED: BISACODYL 10 MG RECTAL SUPP PR PRN (21:43)
[2021-11-22 21:53] LABS: Absolute Lymphocytes (CBC) 2.9 K/uL (0.7-4.9); Hematocrit 35.4 % (36.0-45.0); MPV 10.1 fL (7.6-11.3); RBC Red Blood Cell Count 4.05 M/uL (3.86-4.86)
[2021-11-22] MEDS ORDERED: OXYTOCIN/LR 20 UNIT/1,000 ML BAG IV SCH (22:00)
[2021-11-22 22:49] VITALS: BMI 28.1
[2021-11-23] MEDS ORDERED: PENICILLIN 2.5 MU in NA CHLORIDE 0.9% 100 ML IV SCH (01:00)
[2021-11-23] MEDS ORDERED: PENICILLIN G POT 5 MU/VIAL IV ONE (01:52)
--- NOTE | 2021-11-23 02:53 | DN ---
Surgeon: Doyle Batista MD 20-year-old, 3, para 2, no care. Says she was in [place] for a long time and they would see here, and then she came here and she did not attempt any visits here either. Cam e in to our institution, noted to be ruptured membranes. Nurse said she was 4 cm at that time, 100% effaced, at vertex. I came out. Within the next 15 to 20 minutes, she was then 6 cm. The patient sybil agosto went to complete and basically delivered precipitously, but controlled of a 7-pound 1-ounce term looking female. Apgars 9 and 10. Small first-degree laceration, repaired with 2-0 chromic under loc al infiltration. Schultze delivery of the placenta looked term, complete. Estimated blood loss less than 300 cc. Tolerated all procedures well. Final Diagnosis: Term-appearing , no care, vaginal delivery. OVIDIO/BRIDGER Voice ID: [id number] Report ID: [id number]
--- NOTE | 2021-11-23 02:59 | PREOPHP ---
Date of Admission: 11/22/2021 History: 20-year-old, 3, para 2, no care. Came into our institution with 4 cm, rup ture of membranes, clear fluid, active rapidly advancing labor. Family History: Noncontributory. Allergies: SHE HAS NO ALLERGIES. Medications: No vitamins and nothing taken prior to admission. Was given 5 million units of penicil cl[place]. As by her dates, she says she was not sure, but thought she was 32 weeks, but as it turns out, she wa s term. lab pending. We do not know her blood type or anything else at this point. Physical Examination: Vital Signs: All normal. HEENT: Clear. Pupils equal, round, reactive to light and accommodation. Conjunctivae well perfused . No oral, lingual, or buccal lesions. Chest/Lungs: Clear. Heart: Without murmurs, thrills, heaves, and rubs. Breasts: Not examined. Abdomen: Term size. Extremities: Clear without edema, cyanosis, or clubbing. She was admitted for stabilization and delivery at what was thought to be somewhere between 32 and 36 weeks, as it turns out, she was term. OVIDIO/BRIDGER Voice ID: [id number]
[2021-11-23 07:05] LABS: Barbiturates NEGATIVE (NEGATIVE); Benzodiazepines NEGATIVE (NEGATIVE); Cocaine NEGATIVE (NEGATIVE); METHAMPHETAM NEGATIVE (NEGATIVE); Methadone NEGATIVE (NEGATIVE); Opiates NEGATIVE (NEGATIVE); Phencyclidine NEGATIVE (NEGATIVE); THC Cannibis POSITIVE (NEGATIVE)
[2021-11-23 18:24] LABS: RPR (Rapid Plasma Reagin) NON-REACT (NON-REACT)
[2021-11-23] MEDS ORDERED: Ringers Lactate 1,000 ML IV ONE (20:09)
[2021-11-23 22:06] VITALS: BP 138/80; TEMP 97
--- NOTE | 2021-11-24 02:20 | DS ---
Date of Discharge: 11/23/2021 Hospital Course: 20-year-old 3, para 2. No care. Dropped into our institution, de livered rapidly of a 7 pounds 1 ounce female, Apgars 9 and 10. Very small first-degree laceration ley tured with 2-0 chromic, 3-4 stitches. Schultze delivery of the placenta. Less than 300 mL blood los s. Placenta inspected and noted be intact and normal. ; afebrile, ambulating, voiding. L ochia is normal. Drug screen showed THC only. Offered Tdap, flu shot, and COVID immunizations discu ssed. She is Rh positive, HIV negative. Other labs are pending at this point. Assessment Nurse Practitioner will co me by to check the baby. The baby is doing well. Patient can be dismissed any time later today if p ediatrician lets the baby go home. Patient knows she can call my office for 6 weeks checkup if she w ishes and we will discuss control at that point. She has been noncompliant, of course, during her with any type of visits anywhere, but she was offered to come to my office for followup if she so chooses. Full dismissal instructions given. Final Diagnoses: Term intrauterine . No care. Vaginal delivery. OVIDIO/BRIDGER Voice ID: [id number] Report ID: [id number]
[2021-11-26 04:45] LABS: HBsAG Nonreactive (Nonreactive)
== END 2021-11-23 23:35 | disposition home or self-care (01) | DRG 806 ==
LOC: L&D 20:06 → 2ND-WC 21:13
PROVIDERS: ADMIT Specialist; ATTEND Specialist
PROC: 10E0XZZ Delivery of Products of Conception, External Approach (ICD-10-PCS; principal; 2021-11-22)
PROC: 0HQ9XZZ Repair Perineum Skin, External Approach (ICD-10-PCS; 2021-11-22)
DX: O70.0 First degree perineal laceration during delivery (principal); O99.324 Drug use complicating childbirth; Z37.0 Single live birth; F12.90 Cannabis use, unspecified, uncomplicated; Z3A.00 Weeks of gestation of pregnancy not specified
CPT/HCPCS: 36415; 80307; 82947; 85025; 86592; 86762; 86901; 87340; 99218; G0433; J0595; J2210; J2540; J2550; J2590; J7120